=== PATIENT | female | born 1995 | race Two or more races ===

== ENCOUNTER 2017-09-05 22:33 | Emergency (ER) | payer OTHER ==
[~2017-09-05] VITALS: Ht 157.5 cm; Wt 72.6 kg
[2017-09-06 00:55] VITALS: BP 118/93
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
[2017-09-06] MEDS ORDERED: ACETAMINOPHEN 325 MG TABLET PO ONE (01:30)
[2017-09-06] MEDS ORDERED: ACETAMINOPHEN ES 500 MG TABLET ONE (01:53)
== END 2017-09-06 01:57 | disposition home or self-care (01) ==
LOC: ER 22:37
DX: S09.90XA Unspecified injury of head, initial encounter (principal); S20.219A Contusion of unspecified front wall of thorax, initial encounter; V49.49XA Driver injured in collision with other motor vehicles in traffic accident, initial encounter; Y93.89 Activity, other specified; Y92.410 Unspecified street and highway as the place of occurrence of the external cause; Y99.8 Other external cause status
CPT/HCPCS: 99283; A4606; Z7610